=== PATIENT | female | born 1955 | race Caucasian/White ===

== ENCOUNTER → 2017-04-22 | Outpatient (CLI) | payer OTHER ==
[~2017-04-22] MED LIST: BENTYL10 M1 PO
[2017-04-22 09:26] LABS: HEMOGLOBIN 14.2 g/dL (12.2-16.2); LYMPH # 1.9 K/mm3 (0.7-4.5); LYMPH % 27.3 % (10-50.0)
== END ==
LOC: LAB 08:57
PROVIDERS: Nurse Practitioner Acute Care
DX: R94.5 Abnormal results of liver function studies (principal)

== ENCOUNTER → 2017-04-23 | Day surgery (SDC) | payer OTHER ==
--- NOTE | 2017-05-07 08:18 | RADIOLOGY REPORT PS360 ---
CT BIOPSY, CT ABD W/O CONT(RENAL ST.orAPP, CT ORGAN SITE (LIVER) Post procedure care HISTORY: CT GUIDED LIVER BIOPSY Ordering Physician: SARAH MENDOZA Patient Age: 61 years: Female COMPARISON is made to previous CT abdomen pelvis 04/12/2017 TECHNIQUE & FINDINGS ... CT ABDOMEN WITHOUT CONTRAST... Initial CT through the abdomen and pelvis shows no change since previous studies 04/12/2017 the lung bases to be clear. Probable small hiatal hernia Liver. No findings on this noncontrast study. Spleen, adrenals, pancreas, kidneys unremarkable. . ... CT-GUIDED CORE BIOPSY OF LIVER: Patient received Xanax 0.5 and Lortab 7.5 prior to the study for comfort Initial CT of the abdomen demonstrated optimal site for CT-guided biopsy -Targeting was performed Following sterile preparation local skin anesthesia hypertrophic needle was initially directed towards the liver between the ribs. Scanning confirms good position of this therapeutic massage technician needle and subsequent to this core biopsy needles were then introduced. two 18-gauge Koffi-Cut needle biopsies performed followed by (1) 16-gauge Koffi-Cut needle biopsy.. Patient tolerated procedure well with minimal discomfort. . she had been off aspirin for over 5 days.. However because of this we did observe the patient for 2 hours afterwards with no problems. She is to avoid stressful activity or heavy lifting or straining today and to lesser degree tomorrow. 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 Negative for fibrosis. No increased iron
--- NOTE | 2017-05-07 08:18 | RADIOLOGY REPORT PS360 ---
CT BIOPSY, CT ABD W/O CONT(RENAL ST.orAPP, CT ORGAN SITE (LIVER) Post procedure care HISTORY: CT GUIDED LIVER BIOPSY Ordering Physician: SAARH EMNDOZA Patient Age: 61 years: Female COMPARISON is made to previous CT abdomen pelvis 04/12/2017 TECHNIQUE & FINDINGS ... CT ABDOMEN WITHOUT CONTRAST... Initial CT through the abdomen and pelvis shows no change since previous studies 04/12/2017 the lung bases to be clear. Probable small hiatal hernia Liver. No findings on this noncontrast study. Spleen, adrenals, pancreas, kidneys unremarkable. . ... CT-GUIDED CORE BIOPSY OF LIVER: Patient received Xanax 0.5 and Lortab 7.5 prior to the study for comfort Initial CT of the abdomen demonstrated optimal site for CT-guided biopsy -Targeting was performed Following sterile preparation local skin anesthesia hypertrophic needle was initially directed towards the liver between the ribs. Scanning confirms good position of this sem manager needle and subsequent to this core biopsy needles were then introduced. two 18-gauge Koffi-Cut needle biopsies performed followed by (1) 16-gauge Koffi-Cut needle biopsy.. Patient tolerated procedure well with minimal discomfort. . she had been off aspirin for over 5 days.. However because of this we did observe the patient for 2 hours afterwards with no problems. She is to avoid stressful activity or heavy lifting or straining today and to lesser degree tomorrow. 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 Negative for fibrosis. No increased iron
== END ==
LOC: RAD 12:04 → SDC 12:04 → RAD 13:00
DX: R94.5 Abnormal results of liver function studies (principal); K83.1 Obstruction of bile duct

== ENCOUNTER → 2017-08-14 | Outpatient (CLI) | payer OTHER ==
[2017-08-14 10:17] LABS: HEMOGLOBIN 14.3 g/dL (12.2-16.2); LYMPH % 14.1 % (10-50.0)
[2017-08-14 11:13] LABS: BUN 13 mg/dL (7-18)
[2017-08-14 11:21] LABS: GFR (ESTIMATED) 56 ML/MIN (59-)
== END ==
LOC: LAB 09:51
PROVIDERS: Nurse Practitioner Acute Care
DX: R94.5 Abnormal results of liver function studies (principal)

== ENCOUNTER → 2017-09-12 | Outpatient (CLI) | payer OTHER ==
[2017-09-12 10:52] LABS: HEMOGLOBIN 14.6 g/dL (12.2-16.2); LYMPH # 2.8 K/mm3 (0.7-4.5); LYMPH % 31.4 % (10-50.0)
[2017-09-12 17:50] LABS: BUN 11 mg/dL (7-18)
[2017-09-12 17:57] LABS: GFR (ESTIMATED) 63 ML/MIN (59-)
== END ==
LOC: LAB 10:05
PROVIDERS: Internal Medicine Gastroenterology
DX: R94.5 Abnormal results of liver function studies (principal)